=== PATIENT | female | born 2000 | race Caucasian/White ===

== ENCOUNTER 2022-12-08 11:53 | Emergency (ER) | payer BC, SELFPAY ==
[2022-12-08 12:05] VITALS: BP 106/75; PULSE 116; RESP 18; TEMP 36.9; O2SAT 97
--- NOTE | 2022-12-08 12:14 | ED.GENADULT ---
HPI - General Adult General Chief complaint: Nausea/Vomiting/Diarrhea Stated complaint: blood pressure, shortness of breath,nausea Time Seen by Provider: 12/08/22 12:20 Source: patient Mode of arrival: ambulatory Limitations: no limitations History of Present Illness HPI narrative: 22-year-old female with no significant past medical history presents with concern for nausea, vomiting, diarrhea that started this morning. She reports many episodes of vomiting and diarrhea. She denies fever, aches. Reports chills and sweats. Denies abdominal pain. She denies upper respiratory symptoms. 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 she denies dysuria, frequency, urgency. She also denies decreased urine output MD complaint: N/V/D Related Data Home Medications Medication Instructions Recorded Confirmed desvenlafaxine 100 mg 100 mg PO DAILY 12/08/22 12/08/22 tablet,extended release 24 hr norethindrone 1 mg-ethinyl 1 tablet PO DAILY 12/08/22 12/08/22 estradiol 20 mcg (21)-iron 75 mg (7) tablet (09/05 (28)) Allergies Allergy/AdvReac Type Severity Reaction Status Date / Time No Known Allergies Allergy Verified 12/08/22 12:09 Review of Systems Review of Systems: CONSTITUTIONAL: Reports chills, sweats. Denies fever. EYES: Denies visual changes, redness, or discharge. ENT: Denies rhinorrhea, sinus pain, otalgia or sore throat. CARDIOVASCULAR: Denies chest pain, palpitations, or edema. RESPIRATORY: Denies cough or dyspnea. GASTROINTESTINAL: Denies abdominal pain, bloody, or mucous stools. Reports nausea, vomiting, diarrhea GENITOURINARY: Denies dysuria or hematuria. SKIN: Denies rash or itching. MUSCULOSKELETAL: Denies myalgia. NEUROLOGIC: Denies numbness, weakness, or headache. All systems reviewed & are unremarkable except as noted in HPI and below PMFSH Comments At time of signature, agree with nursing past medical, surgical, social and family history. There is no relevant family history pertinent to the presenting complaint Exam Narrative: GENERAL: Nontoxic and in no acute distress. HEAD: Normocephalic, atraumatic. EYES: PERRLA, sclera clear, and EOMI. No nystagmus. ENT: Nares clear, turbinates pink, no rhinorrhea or epistaxis. Mucous membranes moist. NECK: Supple. CHEST: No respiratory distress. Clear to auscultation. No bony deformities, no asymmetry. Speaks in full sentences. HEART: Regular rate and rhythm. No murmur heard. Normal peripheral pulses. ABDOMEN: Soft, nontender, nondistended, normal active bowel sounds, no palpable masses. SKIN: Warm, dry, no visible rash. NEURO: Alert and oriented x3. PSYCH: Normal mood and affect Course Course Emergency Course: Discussed symptoms of dehydration with the patient, discussed reasons to go to the emergency room if her symptoms are persisting, not improving, if she notices any signs of dehydration Patient is aware of diagnosis, understands and agrees to treatment plan. Anticipatory guidance given. Patient agrees to follow-up as directed and is aware of reasons to seek care at the emergency department. Portions of this record may have been created with voice recognition software Level of Care: Express Care Visit Reevaluation(s) Reevaluation #1: Patient reports she starting to feel little bit better, she is tolerate lying flat which until now she has not been able to do without vomiting. Date: 12/08/22 Time: 12:45 Vital Signs Vital signs: Reviewed. Medical Decision Making MDM Narrative Medical decision making narrative: Exam findings show no acute concerns or changes; patient is non-toxic appearing and is in no distress. Patient is appropriate for outpatient treatment and follow-up. Critical Care Time Critical Care Time Critical Care Time: No Discharge Plan Discharge Clinical Impression: Nausea, vomiting, and diarrhea Patient Disposition: Home, Self-Care Condition: Stable Addit
[2022-12-08] MEDS: ONDANSETRON HCL ODT 4 MG TABLET PO (12:34)
== END 2022-12-08 12:46 | disposition home or self-care (01) ==
PROVIDERS: Emergency Provider Nurse Practitioner
DX: R11.2 Nausea with vomiting, unspecified (principal); R19.7 Diarrhea, unspecified; L40.9 Psoriasis, unspecified; F41.9 Anxiety disorder, unspecified; F32.A Depression, unspecified
CPT/HCPCS: 99213; A9270; G0463

== ENCOUNTER 2023-03-24 18:24 | Emergency (ER) | payer BC, SELFPAY ==
[2023-03-24 18:32] VITALS: BP 124/80; PULSE 83; RESP 21; TEMP 36.3; O2SAT 99
--- NOTE | 2023-03-24 18:46 | ED.URI ---
HPI - URI/Sore Throat General Chief Complaint: Upper Respiratory Infection Stated Complaint: COUGH Time Seen by Provider: 03/24/23 18:47 Source: patient, RN notes reviewed and old records reviewed Mode of arrival: ambulatory Limitations: no limitations History of Present Illness HPI Narrative: 22-year-old female who presents to [facility] with productive cough for1.5 weeks with expectoration of yellowish mucous. Patient reports that she has bad sinuses and her symptoms initially started with sinus congestion and drainage. Patient reports that she has no shortness of breath and patient is able to speak in full sentences with SAO2 99% on room air. Patient states that she has been taking Delsym cough syrup for her symptoms. Patient reports that she took Home Covid which was negative patient denies any known fevers, chills or sweats or body aches. MD elicited complaint: cough and sore throat Pertinent past history: sinusitis Onset (ago): week(s) (1.5) Consistency: progressively worsening Description of mucous: yellow Able to tolerate fluids by mouth: Yes Treatments prior to arrival: other (Delsym) Related Data Home Medications Medication Instructions Recorded Confirmed desvenlafaxine 100 mg 100 mg PO DAILY 12/08/22 03/24/23 tablet,extended release 24 hr norethindrone 1 mg-ethinyl 1 tablet PO DAILY 12/08/22 03/24/23 estradiol 20 mcg (21)-iron 75 mg (7) tablet (09/05 (28)) Allergies Allergy/AdvReac Type Severity Reaction Status Date / Time No Known Allergies Allergy Verified 03/24/23 18:37 Review of Systems Review of Systems: CONSTITUTIONAL: Denies malaise, chills, sweats, or fever. EYES: Denies visual changes, redness, or discharge. ENT: Reports rhinorrhea, congestion, sinus pain,no otalgia and no sore throat. CARDIOVASCULAR: Denies chest pain, palpitations, or edema. RESPIRATORY: Reports cough productive with expectoration of yellow mucous.? Denies acute dyspnea. GASTROINTESTINAL: Denies abdominal pain, nausea, vomiting, diarrhea SKIN: Denies rash or itching. MUSCULOSKELETAL: Denies myalgia. NEUROLOGIC: Denies headache. All systems reviewed & are unremarkable except as noted in HPI and below PMFSH Past Medical History Medical History (Updated 03/24/23 @ 19:11 by Juanita Ch NP) Anxiety and depression Psoriasis Social History Social History (Updated 03/24/23 @ 19:10 by Juanita Ch NP) Smoking status: Never smoker Alcohol intake: current Alcohol use details: social Substance use type: does not use Gender identity (if verbalized by the patient): Female Comments At time of signature, agree with nursing past medical, surgical, social and family history. There is no relevant family history pertinent to the presenting complaint Exam Narrative: GENERAL: Well-appearing, well-nourished, and in no acute distress. HEAD: Normocephalic EYES: PERRLA, conjunctivae clear ENT: Nares clear, turbinates edematous and erythematous, clear to yellow discharge. Mucous membranes moist. TM pearly bledsoe with dull light reflex bilaterally; no tragal tenderness. Oropharynx erythematous without lesions. Tonsils not enlarged and without exudate, no drooling, no hoarseness, no trismus, uvula midline. NECK: Supple. No lymphadenopathy CHEST: Clear to auscultation, breath sounds equal. No wheezing, rhonchi, rales, or stridor. No respiratory distress, speaks in full sentences.frequent cough noted at times productive of yellow phlegm is worse at night. HEART: Regular rate and rhythm. No murmur heard. SKIN: Warm, dry, no rash. NEURO: Alert and oriented x3. PSYCH: Normal mood and affect Course Course Emergency Course: Patient is aware of diagnosis, understands and agrees to treatment plan.? Anticipatory guidance given.? Patient agrees to follow-up as directed and is aware of reasons to seek care at the emergency department. Portions of this record may have be
== END 2023-03-24 18:58 | disposition home or self-care (01) ==
PROVIDERS: Emergency Provider Registered Nurse; PCP Internal Medicine
DX: R05.1 Acute cough (principal); J06.9 Acute upper respiratory infection, unspecified; F41.9 Anxiety disorder, unspecified; F32.A Depression, unspecified; L40.9 Psoriasis, unspecified
CPT/HCPCS: 99213; G0463

== ENCOUNTER 2025-08-12 08:52 | Emergency (ER) | payer OTHER, SELFPAY ==
--- NOTE | ~2025-08-12 | XR_ITS ---
Examination: XR chest 2V Clinical History: cough, wheeze recent flu Comparison: None Technique: PA and Lateral Findings: Cardiomediastinal silhouette normal size and configuration. Lungs clear. No acute bony abnormality. IMPRESSION: 1. No acute cardiopulmonary findings. Reviewed, dictated and finalized at location R. TEAM MEMBER
[2025-08-12 09:12] VITALS: BP 116/80; PULSE 90; RESP 16; TEMP 36.2; O2SAT 96
--- NOTE | 2025-08-12 09:36 | ED.URI ---
HPI - URI/Sore Throat General Chief Complaint: Upper Respiratory Infection Stated Complaint: dx with Flu earlier in week but not feeling well Time Seen by Provider: 08/12/25 09:36 Source: patient Mode of arrival: ambulatory Limitations: no limitations History of Present Illness HPI Narrative: 24-year-old female presented for complaint of cough x 5 days with right upper lung wheeze since yesterday. States earlier in the week she had flu-like symptoms which have improved besides cough. cough is nonproductive. Endorses fatigue. Taking DayQuil and used and at the inhaler yesterday. Endorses she is on immunotherapy, and has had to anaphylactic reactions in the past few months. Currently denies shortness of breath, diarrhea, fevers or lethargy. Related Data Home Medications ?Medication ?Instructions ?Recorded ?Confirmed ?Last Taken ?Type desvenlafaxine 100 mg 100 mg PO DAILY 12/08/22 11/25/23 Unknown History tablet,extended release 24 hr alprazolam 0.25 mg tablet (Xanax) 0.25 mg PO QHS PRN 11/25/23 11/25/23 Unknown History drospirenone (contraceptive) 4 mg 1 tablet PO DAILY 11/25/23 11/25/23 Unknown History (28) tablet (Slynd) sertraline 100 mg tablet mg 08/12/25 Unknown History Allergies Allergy/AdvReac Type Severity Reaction Status Date / Time amoxicillin Allergy Intermediate Hives Verified 08/12/25 09:12 Review of Systems Review of Systems: per HPI All systems reviewed & are unremarkable except as noted in HPI and below PMFSH Past Medical History Medical History (Updated 08/12/25 @ 10:19 by Domitila Danielson APRN) Psoriasis Anxiety and depression Surgical History Surgical History (Updated 11/25/23 @ 07:54 by Emily Currie CMA) S/P left knee arthroscopy Family History Family History (Updated 11/25/23 @ 07:55 by Emily Currie CMA) Father Alcoholism Mother Diabetes mellitus Depression Sibling Alcoholism Asthma Depression Crohn's colitis Grandparent Stomach cancer Diabetes mellitus Hypertension Cerebrovascular accident Thyroid disorder Grandparent Alcoholism Hypertension Cerebrovascular accident Social History Social History (Updated 11/25/23 @ 07:51 by Emily Currie CMA) Smoking status: Never smoker Alcohol intake: current Alcohol use details: social Substance use type: does not use Lack of Transportation: No Lack of Food: Never True Current Housing: I Have Housing Concerned About Future Housing: No Difficulty Paying Gas/Electric Bills: No Difficulty Paying for Meds: No Currently Unemployed: No Education: Master's Degree or Higher Difficulty w/ Childcare or Family Care: No Gender identity (if verbalized by the patient): Female Comments At time of signature, I have reviewed and agree with nursing past medical, surgical, social and family history unless otherwise noted. Please see nursing chart for further information. There is no relevant family history pertinent to the presenting complaint Exam Narrative: GENERAL: Well-appearing, in no acute distress. EYES: EOMI. No redness or drainage. Conjunctivae normal. ENT: Mucous membranes pink and moist. No rhinorrhea. TMs normal bilaterally. Throat normal. Uvula midline. NECK: Normal AROM. Supple. CHEST: No respiratory distress. Faint wheezing to right upper lung. Occasional cough with deep inspiration. HEART: Regular rate and rhythm. No murmur appreciated. ABDOMEN: Soft, nontender, nondistended, normal active bowel sounds. SKIN: Warm, dry, no rash. Capillary refill normal. Normal skin turgor. NEURO: Alert and oriented x3. Gait steady. PSYCH: Normal affect. Course Course Level of Care: Express Care Visit Vital Signs Vital signs: Vital Signs Temperature 97.1 F L 08/12/25 09:12 Pulse Rate 90 08/12/25 09:12 Respiratory Rate 16 08/12/25 09:12 Blood Pressure 116/80 08/12/25 09:12 Pulse Oximetry 96 08/12/25 09:12 Temperature 97.1 F L 08/12/25 09:12 Pulse Rate 90 08/12/25 09:12 Respiratory Rate 16 08/12/25 09:12 Blood Pressure 116/80 08/12/25 09:12 Pulse Oximetry 96 08/12/25 09:12 [facility] Narrative Medical decision making narrative: Results of chest x-ray reviewed with patient. Rx steroid and albuterol inhaler. agreeable to plan. Discussed physical exam findings. Advised supportive measures and signs/symptoms to go to the ER. Pt is appropriate for outpt treatment and f/u. Differential Diagnosis Differential Diagnosis: Influenza, covid, sinusitis, OM, strep pharyngitis, URI , bronchitis, pneumonia Imaging Data Radiologist's impression: ITS Impressions Chest X-Ray 08/12/25 09:55 IMPRESSION: 1. No acute cardiopulmonary findings. Discharge Plan Discharge Clinical Impression: Viral infection Patient Disposition: Home Condition: Stable Instructions: Acute Bronchitis (ED) Additional Instructions: Take medication as directed Recommend Flonase spray and Zyrtec (or Claritin/Niurka) over the counter Cough syrup may cause drowsiness; avoid driving or take it at night time. Tylenol every 8 hours as needed for pain Symptomatic treatment includes: rest, fluids, and increase humidity of the air at home. Follow up with your primary care provider as needed in 1 week Go to the ER for worsening symptoms or concerns Patient Language: Nicaraguan Prescriptions: New benzonatate 200 mg capsule 200 mg PO TID PRN (Reason: cough) Qty: 20 0RF methylprednisolone [Medrol (Chace)] 4 mg tablets,dose pack See Rx Instructions .ROUTE .COMPLEX Qty: 21 0RF Rx Instructions: orally per package directions albuterol sulfate 90 mcg/actuation HFA aerosol inhaler 2 inh inhalation QID PRN (Reason: shortness of breath or wheezing) Qty: 8.5 0RF No Action sertraline 100 mg tablet desvenlafaxine 100 mg Tablet Extended Release 24 Hr 100 mg PO DAILY Slynd 4 mg (28) tablet 1 tablet PO DAILY alprazolam [Xanax] 0.25 mg tablet 0.25 mg PO QHS PRN fluticasone propionate [Flonase Allergy Relief] 50 mcg/actuation spray,suspension 1 - 2 spray intranasal BID Qty: 16 1RF Rx Instructions: administer into each nostril. Aim back/up/out azelastine 137 mcg (0.1 %) aerosol,spray 1 - 2 spray intranasal Q12H Qty: 30 0RF Rx Instructions: administer into each nostril. Aim back/up/out Follow-up/Referrals: Neftaly,MD Jo [Primary Care Provider, Unknown]
== END 2025-08-12 10:27 | disposition home or self-care (01) ==
PROVIDERS: Emergency Provider Nurse Practitioner Family; PCP Internal Medicine
DX: B34.9 Viral infection, unspecified (principal); L40.9 Psoriasis, unspecified; F41.9 Anxiety disorder, unspecified; F32.A Depression, unspecified
CPT/HCPCS: 71046; 99213; G0463